=== PATIENT | male | born 1970 | race Caucasian/White ===

== ENCOUNTER 2022-11-08 13:45 | Emergency (ER) | payer MEDICAID, OTHER ==
[~2022-11-08] VITALS: Ht 175.3 cm; Wt 84.0 kg
[2022-11-08 13:46] VITALS: BP 140/89; TEMP 99.3; O2SAT 99
[2022-11-08] MEDS ORDERED: LISI10TA22 (14:17)
[2022-11-08] MEDS ORDERED: ROSU40TA4 (14:17)
[2022-11-08 15:30] LABS: RSV AMPLIFICATION NEGATIVE (NEGATIVE)
== END 2022-11-08 17:34 | disposition left against medical advice (07) ==
LOC: M ED 13:45
DX: Z53.21 Procedure and treatment not carried out due to patient leaving prior to being seen by health care provider (principal)

== ENCOUNTER 2024-02-28 08:31 | Day surgery (SDC) | payer OTHER ==
[~2024-02-28] VITALS: Ht 175.3 cm; Wt 89.1 kg
[~2024-02-28 08:31] MED LIST: ERGO500029 PO; GABA-1172 PO; LISI10TA22; LISI30TA4 PO; MELO15TA28 PO; MIDAZOLAM INJ 2MG/2ML VIAL As Ordered ONE; PHENYLEPHRINE 10% OPHTH SOL 5ML OS PRN; PREG50CA3 PO; ROSU40TA81 PO; fentaNYL 100 MCG/2 ML INJECTION As Ordered ONE
[2024-02-28] MEDS: TROPICAMIDE 1% OPHTH SOLN 15ML OS SCH (09:36)
[2024-02-28] MEDS: CYCLOPENTOLATE 1% OPHTH SOLN 2ML BTL OS SCH (09:36)
[2024-02-28] MEDS: PHENYLEPHRINE 2.5% OPHTH SOL 2ML OS SCH (09:36)
[2024-02-28] MEDS: LIDOCAINE 3.5 % 1ML OPHTH TOPICAL GEL OU ONE (09:36)
[2024-02-28] MEDS: OFLOXACIN 0.3 % (OCUFLOX) OPTH SOL 5ML OS ONE (09:36)
[2024-02-28] MEDS: LIDOCAINE 1% SDV 5ML VIAL As Ordered ONE (11:34)
[2024-02-28] MEDS: CEFUROXIME 1MG/0.1ML INTRACAMERAL INJ As Ordered ONE (11:35)
[2024-02-28] MEDS: BSS IRRIG/VANCO(10MG)/TOBRA(5MG)/EPINEPH(1:1000-0.5CC)500ML BAG-ORONLY As Ordered ONE (11:35)
[2024-02-28 11:49] VITALS: BP 144/89; TEMP 97; O2SAT 96
== END 2024-02-28 12:09 | disposition home or self-care (01) ==
LOC: M SDC 08:31
PROVIDERS: ATTEND Ophthalmology
DX: H25.12 Age-related nuclear cataract, left eye (principal); I10 Essential (primary) hypertension; E78.00 Pure hypercholesterolemia, unspecified; I25.2 Old myocardial infarction; Z79.899 Other long term (current) drug therapy; Z88.0 Allergy status to penicillin
CPT/HCPCS: 66984; J0697; J2250; J3010; V2632

== ENCOUNTER 2024-03-06 06:11 | Day surgery (SDC) | payer OTHER ==
[~2024-03-06] VITALS: Ht 175.3 cm; Wt 89.7 kg
[~2024-03-06 06:11] MED LIST changes: -MIDAZOLAM INJ 2MG/2ML VIAL As Ordered ONE; +PHENYLEPHRINE 10% OPHTH SOL 5ML OD PRN; -PHENYLEPHRINE 10% OPHTH SOL 5ML OS PRN; -fentaNYL 100 MCG/2 ML INJECTION As Ordered ONE
[2024-03-06] MEDS: PHENYLEPHRINE 2.5% OPHTH SOL 2ML OD SCH (06:45)
[2024-03-06] MEDS: CYCLOPENTOLATE 1% OPHTH SOLN 2ML BTL OD SCH (06:45)
[2024-03-06] MEDS: LIDOCAINE 3.5 % 1ML OPHTH TOPICAL GEL OU ONE (06:45)
[2024-03-06] MEDS: OFLOXACIN 0.3 % (OCUFLOX) OPTH SOL 5ML OD ONE (06:45)
[2024-03-06] MEDS: TROPICAMIDE 1% OPHTH SOLN 15ML OD SCH (06:45)
[2024-03-06] MEDS ORDERED: MIDAZOLAM INJ 2MG/2ML VIAL As Ordered ONE (07:09)
[2024-03-06] MEDS: CEFUROXIME 1MG/0.1ML INTRACAMERAL INJ As Ordered ONE (08:10)
[2024-03-06] MEDS: BSS IRRIG/VANCO(10MG)/TOBRA(5MG)/EPINEPH(1:1000-0.5CC)500ML BAG-ORONLY As Ordered ONE (08:10)
[2024-03-06] MEDS: LIDOCAINE 1% SDV 5ML VIAL As Ordered ONE (08:10)
[2024-03-06 08:25] VITALS: BP 148/85; TEMP 97.3; O2SAT 97
== END 2024-03-06 08:42 | disposition home or self-care (01) ==
LOC: M SDC 06:11
PROVIDERS: ATTEND Ophthalmology
DX: H25.11 Age-related nuclear cataract, right eye (principal); I25.2 Old myocardial infarction; E78.5 Hyperlipidemia, unspecified; I10 Essential (primary) hypertension; Z79.899 Other long term (current) drug therapy; Z88.0 Allergy status to penicillin
CPT/HCPCS: 66984; J0697; J2250; V2632